=== PATIENT | female | born 1975 | race Caucasian/White ===

== ENCOUNTER → 2024-08-06 16:19 | Outpatient (REF) | payer BC, SELFPAY ==
[2024-08-17 17:05] LABS: HPV, High Risk Not Detected; HPV, High Risk Source Anal
== END ==
LOC: CLAB 16:19
PROVIDERS: ATTENDING PHYSICIAN Surgery
DX: Z87.42 Personal history of other diseases of the female genital tract (principal)
CPT/HCPCS: 87624; 88112

== ENCOUNTER → 2024-08-27 08:06 | Outpatient (REF) | payer BC, SELFPAY | LOC: HWWDC 08:06 | PROVIDERS: ATTENDING PHYSICIAN Obstetrics & Gynecology; FAMILY PHYSICIAN Nurse Practitioner Family | DX: Z12.31 Encounter for screening mammogram for malignant neoplasm of breast (principal) | CPT/HCPCS: 77063; 77067 ==

== ENCOUNTER 2024-11-10 06:17 | Day surgery (SDC) | payer BC, SELFPAY | END 2024-11-10 10:27 | disposition home or self-care (01) | LOC: GI 06:17 | PROVIDERS: ATTENDING PHYSICIAN Surgery | DX: Z12.11 Encounter for screening for malignant neoplasm of colon (principal); K62.89 Other specified diseases of anus and rectum; D12.0 Benign neoplasm of cecum; A63.0 Anogenital (venereal) warts | CPT/HCPCS: 45380; 88305 ==